=== PATIENT | male | born 1975 | race Caucasian/White ===

== ENCOUNTER 2017-07-13 01:41 | Emergency (ER) | payer BC ==
[2017-07-13] MEDS ORDERED: METOCLOPRAMIDE 5 MG/ML 2 ML VIAL IVP STA (02:05)
[2017-07-13] MEDS ORDERED: SODIUM CHLORIDE 0.9% 1,000 ML IV STA (02:05)
[2017-07-13] MEDS ORDERED: diphenhydrAMINE 50 MG/ML 1 ML VIAL IVP STA (02:05)
[2017-07-13 02:47] LABS: Basophils # (A) 0.1 k/uL (0-0.2); Basophils % (A) 1 %; CH 32.2; CHCM 35.2; Eosinophils # (A) 0.1 k/uL (0-0.7); Eosinophils % (A) 1 %; HCT 51.7 % (39.0-53.0); HDW 2.42; HGB 17.4 gm/dL (13.0-17.5); Luc % (Auto) 1; Lymphocytes # (A) 1.9 k/uL (1.0-4.8); Lymphocytes % (A) 21 %; MCH 30.9 pg (25.0-35.0); MCHC 33.6 g/dL (31.0-37.0); MCV 91.9 fL (80.0-100.0); Mean Platelet Volume 7.6; Monocytes # (A) 0.4 k/uL (0-1.0); Monocytes % (A) 5 %; Neutrophils # (A) 6.6 k/uL (1.3-7.7); Neutrophils % (A) 72 %; RBC 5.62 m/uL (4.30-5.90); RDW 14.2 % (11.5-15.5); WBC 9.2 k/uL (3.8-10.6); WBC (Perox) 9.06
[2017-07-13 02:57] LABS: ALT 42 U/L (21-72); AST 29 U/L (17-59); Alkaline Phosphatase 66 U/L (38-126); Anion Gap 13 mmol/L; Blood Urea Nitrogen 17 mg/dL (9-20); Calcium 9.9 mg/dL (8.4-10.2); Carbon Dioxide 19 mmol/L (22-30); Chloride 105 mmol/L (98-107); Glucose 91 mg/dL (74-99); Non-African American GFR(MDRD) >60 (>60 ml/min/1.73 sqM); Potassium 4.4 mmol/L (3.5-5.1); Sodium 137 mmol/L (137-145); Total Bilirubin 0.6 mg/dL (0.2-1.3); Total Protein 7.9 g/dL (6.3-8.2)
--- NOTE | 2017-07-13 03:01 | CT ---
EXAM: CT Head Without Intravenous Contrast CLINICAL HISTORY: Reason: Headache TECHNIQUE: Axial computed tomography images of the head/brain without intravenous contrast. CTDI is 60.3 mGy and DLP is 1000.4 mGy-cm. This CT exam was performed using one or more of the following dose reduction techniques: automated exposure control, adjustment of the mA and/or kV according to patient size, and/or use of iterative reconstruction technique. Coronal and sagittal reconstructions are performed COMPARISON: No relevant prior studies available. FINDINGS: Brain: Unremarkable. No hemorrhage. No significant white matter disease. No edema. Ventricles: Unremarkable. No ventriculomegaly. Bones/joints: Unremarkable. No acute fracture. Soft tissues: Unremarkable. Sinuses: Unremarkable as visualized. No acute sinusitis. Mastoid air cells: Unremarkable as visualized. No mastoid effusion. IMPRESSION: No acute intracranial findings
[2017-07-13 03:13] VITALS: BP 119/69; PULSE 89; RESP 18; TEMP 97.1
[2017-07-13] MEDS ORDERED: ACYCLOVIR 800 MG TAB PO STA (03:14)
--- NOTE | 2017-07-13 03:19 | ED ---
Skin/Abscess/FB HPI - General Chief complaint: Skin/Abscess/Foreign Body Stated complaint: facial pain,rash Time Seen by Provider: 07/13/17 01:46 Source: patient, RN notes reviewed, old records reviewed Mode of arrival: ambulatory Limitations: no limitations - History of Present Illness Initial comments: This is a 42 year old male with multiple complaints. Patient relates that he has had lesions over his scalp for the past few months, they are very pruritic and patient states that he scratched them today and there was some bleeding. Patient also relates that today he has some irritation, paresthesias, and pain over the right side of his face. Patient relates that he also noted a pimple over his right forehead. Patient relates that he also has a headache, and left work due to the headache. Patient reports he has had motrin with little relief of the headache. Patient states that he has no fever, chills, chest pain, shortness of breath. - Related Data Previous Rx's Medication Instructions Recorded HYDROcodone/APAP 5-325MG [[place] 1 each PO Q6HR PRN #20 tab 02/08/15 5-325] SILVER sulfADIAZINE Cream 1 applic TOPICAL BID #400 cream..g. 02/08/15 [Silvadene 1% Cream] valACYclovir HCL [Valacyclovir] 1,000 mg PO TID #21 tab 07/13/17 Allergies Allergy/AdvReac Type Severity Reaction Status Date / Time No Known Allergies Allergy Verified 07/13/17 01:52 Review of Systems ROS Statement: Those systems with pertinent positive or pertinent negative responses have been documented in the HPI. ROS Other: All systems not noted in ROS Statement are negative. Past Medical History Past Medical History: No Reported History History of Any Multi-Drug Resistant Organisms: None Reported Past Surgical History: Orthopedic Surgery Additional Past Surgical History / Comment(s): wrist surgery, knee surgery Past Psychological History: Anxiety Smoking Status: Current every day smoker Past Alcohol Use History: Occasional Past Drug Use History: None Reported General Exam - General Exam Comments Initial Comments: This is a 42 year old male, no distress. Limitations: no limitations General appearance: alert, in no apparent distress Head exam: Present: atraumatic, normocephalic, normal inspection, other ( patient has lesions over scalp that appear to be tinea capitus. ) Eye exam: Present: normal appearance, PERRL, EOMI. Absent: scleral icterus, conjunctival injection, periorbital swelling ENT exam: Present: normal exam, mucous membranes moist, other (one erythematous blister over right forehead. ) Neck exam: Present: normal inspection. Absent: tenderness, meningismus, lymphadenopathy Respiratory exam: Present: normal lung sounds bilaterally. Absent: respiratory distress, wheezes, rales, rhonchi, stridor Cardiovascular Exam: Present: regular rate, normal rhythm, normal heart sounds. Absent: systolic murmur, diastolic murmur, rubs, gallop, clicks GI/Abdominal exam: Present: soft, normal bowel sounds. Absent: distended, tenderness, guarding, rebound, rigid Extremities exam: Present: normal inspection, full ROM, normal capillary refill. Absent: tenderness, pedal edema, joint swelling, calf tenderness Back exam: Present: normal inspection Neurological exam: Present: alert, oriented X3, CN II-XII intact Expanded Patient oriented to: Present: person, place, time Speech: Present: fluid speech Cranial nerves: EOM's Intact: Normal Cerebellar function: Finger to Nose: Normal Upper motor neuron: Pronator Drift: Normal Sensory exam: Upper Extremity Light Touch: Normal, Lower Extremity Light Touch: Normal Motor strength exam: RUE: 5, LUE: 5, RLE: 5, LLE: 5 Eye Response: (4) open spontaneously Motor Response: (6) obeys commands Verbal Response: (5) oriented [place] Total: 15 Psychiatric exam: Present: normal affect, normal mood Course Vital Signs 07/13/17 07/13/17 01:47 03:11 Temperature 99.1 F 97.1 F L Pulse Rate 76 89 Respiratory 16 18 Rate Blood Pressure 134/87 119/69 O2 Sat by Pulse 98 98 Oximetry Medical Decision Making - Medical Decision Making This is a 42 year old male with lesion over scalp, facial pain nad blister, and headache. Labwork reviewed negtive for any abnormalities. CT brain is negative. Scalp lesions are consisitent with tinea capitus, patient also has blister lesion that can be similiar to begining shingles outbreak. This is consistent with prodromal facial parestesias and pain. Patient will be started on valtrex. Given a note for work, referral to PCP and dermatology. His headache is feeling better after fluids and medication. Patient needs to follow up with derm and discussed that if he has pain in his eye he needs to return for reevaluation. REturn parameters discussed. - Lab Data Result diagrams: 07/13/17 02:39 07/13/17 02:39 Lab Results 07/13/17 07/13/17 Range/Units 02:39 02:39 WBC 9.2 (3.8-10.6) k/uL RBC 5.62 (4.30-5.90) m/uL Hgb 17.4 (13.0-17.5) gm/dL Hct 51.7 (39.0-53.0) % MCV 91.9 (80.0-100.0) fL MCH 30.9 (25.0-35.0) pg MCHC 33.6 (31.0-37.0) g/dL RDW 14.2 (11.5-15.5) % Plt Count 292 (150-450) k/uL Neutrophils % 72 % Lymphocytes % 21 % Monocytes % 5 % Eosinophils % 1 % Basophils % 1 % Neutrophils # 6.6 (1.3-7.7) k/uL Lymphocytes # 1.9 (1.0-4.8) k/uL Monocytes # 0.4 (0-1.0) k/uL Eosinophils # 0.1 (0-0.7) k/uL Basophils # 0.1 (0-0.2) k/uL Sodium 137 (137-145) mmol/L Potassium 4.4 (3.5-5.1) mmol/L Chloride 105 (98-107) mmol/L Carbon Dioxide 19 L (22-30) mmol/L Anion Gap 13 mmol/L BUN 17 (9-20) mg/dL Creatinine 1.20 (0.66-1.25) mg/dL Est GFR (MDRD) Af Amer >60 (>60 ml/min/1.73 sqM) Est GFR (MDRD) Non-Af >60 (>60 ml/min/1.73 sqM) Glucose 91 (74-99) mg/dL Calcium 9.9 (8.4-10.2) mg/dL Total Bilirubin 0.6 (0.2-1.3) mg/dL AST 29 (17-59) U/L ALT 42 (21-72) U/L Alkaline Phosphatase 66 (38-126) U/L Total Protein 7.9 (6.3-8.2) g/dL Albumin 4.9 (3.5-5.0) g/dL - Radiology Data Radiology results: report reviewed CT brain negative for any acute process. Disposition Clinical Impression: Tinea capitis, Shingles rash, Headache Disposition: HOME SELF-CARE Condition: Good Instructions: Shingles (ED), Tinea Capitis (ED), Acute Headache (ED) Additional Instructions: Patient advised to return to the emergency department if any significant pain or some drainage with into the eye, take the antiviral medicines as prescribed. Patient should take Motrin Tylenol for further pain. The need to follow-up with a primary care provider. Also following up with the bank president in regards to the scalp irritation, return to the emergency department if any alarming signs or symptoms occur. Prescriptions: valACYclovir HCL [Valacyclovir] 1,000 mg PO TID #21 tab Referrals: None,Stated [Primary Care Provider] - 1-2 days Harleen Hernández MD [STAFF PHYSICIAN] - 1-2 days Time of Disposition: 03:15
[2017-07-13] MEDS ORDERED: valACYclovir 500 MG TAB PO STA (03:20)
[2017-07-13] MEDS: KETOROLAC 30 MG/ML 1 ML VIAL IVP STA ×2 (03:22→03:27)
[2017-07-13] MEDS: ORPHENADRINE 30 MG/ML 2 ML VIAL IVP STA ×2 (03:27→03:33)
== END 2017-07-13 03:40 | disposition home or self-care (01) ==
LOC: EC 01:41
DX: B35.0 Tinea barbae and tinea capitis (principal); B02.9 Zoster without complications; R51 Headache; F17.200 Nicotine dependence, unspecified, uncomplicated
CPT/HCPCS: 36415; 80053; 85025; 70450; 99284; 96374; 96375 ×2; 96361; J1200; J2360; J2765

== ENCOUNTER 2018-12-31 16:16 | Emergency (ER) | payer BC, OTHER ==
[2018-12-31 16:27] VITALS: BP 112/70; PULSE 77; TEMP 97.8
--- NOTE | 2018-12-31 17:47 | ED ---
General Adult HPI - General Chief complaint: Upper Respiratory Infection Stated complaint: SOB, rash Time Seen by Provider: 12/31/18 16:43 Source: patient, RN notes reviewed, old records reviewed Mode of arrival: ambulatory Limitations: no limitations - History of Present Illness Initial comments: 43-year-old male patient with no pertinent past medical history presents ED with 1 day history of painful rash in left axilla. Patient states that he noticed this today. Patient states that the rash is red, painful. Patient denies any other complaints. Patient denies chest pain, shortness breath, abdominal pain, nausea vomiting diarrhea, fevers chills. Systemic: Pt denies fatigue, myalgia, fever/chills. Pt denies weakness, night sweats, weight loss. Neuro: Pt denies headache, visual disturbances, syncope or pre-syncope. HEENT: Pt denies ocular discharge or irritation, otalgia, rhinorrhea, pharyngitis or notable lymphadenopathy. Cardiopulmonary: Pt denies chest pain, SOB, heart palpitations, dyspnea on exertion. Abdominal/GI: Pt denies abdominal pain, n/v/d. : Pt denies dysuria, burning w/ urination, frequency/urgency. Denies new onset urinary or bowel incontinence. MSK: Pt denies myalgia, loss of strength or function in extremities. Neuro: Pt denies new onset weakness, paresthesias. - Related Data Home Medications Medication Instructions Recorded Confirmed Dextroamphetamine/Amphetamine 20 mg PO BID 12/31/18 12/31/18 [Adderall] Sildenafil [Revatio] 20 mg PO DIRECTED 12/31/18 12/31/18 Previous Rx's Medication Instructions Recorded Clotrimazole/Betamethasone Dip 1 applic TOPICAL Q12HR 14 Days #1 12/31/18 [Lotrisone Cream] tube Allergies Allergy/AdvReac Type Severity Reaction Status Date / Time No Known Allergies Allergy Verified 12/31/18 16:42 Review of Systems ROS Statement: Those systems with pertinent positive or pertinent negative responses have been documented in the HPI. ROS Other: All systems not noted in ROS Statement are negative. Past Medical History Past Medical History: No Reported History History of Any Multi-Drug Resistant Organisms: None Reported Past Surgical History: Orthopedic Surgery Additional Past Surgical History / Comment(s): wrist surgery, knee surgery Past Psychological History: ADD/ADHD Smoking Status: Current every day smoker Past Alcohol Use History: None Reported Past Drug Use History: None Reported General Exam - General Exam Comments Initial Comments: Constitutional: NAD, AOX3, Pt has pleasant affect. HEENT: NC/AT, trachea midline, neck supple, no lymphadenopathy. Posterior pharynx non erythematous, without exudates. External ears appear normal, without discharge. Mucous membranes moist. Eyes PERRLA, EOM intact. There is no scleral icterus. No pallor noted. Cardiopulmonary: RRR, no murmurs, rubs or gallops, no JVD noted. Lungs CTAB in anterior and posterior rico. No peripheral edema. Abdominal exam: Abdomen soft and non-distended. Abdomen non-tender to palpation in all 4 quadrants. Bowel sounds active in LLQ. No hepatosplenomegaly. No ecchymosis Neuro: CN II-XII grossly intact. No nuchal rigidity. MSK: Erythematous rash noted in L axilla, tender to touch. No posterior calf tenderness bilaterally, homans sign negative bilaterally. Posterior tibialis and radial pulse +2 bilaterally. Sensation intact in upper and lower extremities. Full active ROM in upper and lower extremities, 5/5 stregnth. Limitations: no limitations Course Vital Signs 12/31/18 12/31/18 16:23 18:49 Temperature 97.8 F Pulse Rate 77 Respiratory 18 20 Rate Blood Pressure 112/70 O2 Sat by Pulse 100 Oximetry Medical Decision Making - Medical Decision Making 43-year-old male patient with no pertinent past medical history presents ED with 1 day history of painful rash in left axilla. Patient states that he noticed this today. Patient states that the rash is red, painful. Patient denies any other complaints. Patient denies chest pain, shortness breath, ab dominal pain, nausea vomiting diarrhea, fevers chills. Pt VSS, afebrile. Physical exam displayed: Erythematous rash noted in L axilla, tender to touch. This appears likely to be contact dermatitis. Patient prescribed Lotrisone cream. Patient will follow up with primary care provider in 1-2 days for continued evaluation. Case discussed with Dr. Prasad. Disposition Clinical Impression: Rash Disposition: HOME SELF-CARE Condition: Stable Instructions (If sedation given, give patient instructions): Acute Rash (ED) Additional Instructions: Patient to adhere to previously discussed treatment plan and will take medication(s) as directed. Patient to follow up with PCP in 1-2 days. Patient to return to ED if symptoms do not improve. Please follow-up with primary care provider in 1-2 days. Please used cream as directed. Please return to ER if condition worsens in any way. Prescriptions: Clotrimazole/Betamethasone Dip [Lotrisone Cream] 1 applic TOPICAL Q12HR 14 Days #1 tube Is patient prescribed a controlled substance at d/c from ED?: No Referrals: Sander Melchor MD [Primary Care Provider] - 1-2 days
[2018-12-31 18:49] VITALS: RESP 20
== END 2018-12-31 18:50 | disposition home or self-care (01) ==
LOC: EC 16:16
DX: R21 Rash and other nonspecific skin eruption (principal); F90.9 Attention-deficit hyperactivity disorder, unspecified type; F17.200 Nicotine dependence, unspecified, uncomplicated; Z79.899 Other long term (current) drug therapy
CPT/HCPCS: 99285

== ENCOUNTER 2019-07-29 22:53 | Emergency (ER) | payer BC ==
[2019-07-30] MEDS ORDERED: diphenhydrAMINE 50 MG CAP PO STA (00:46)
--- NOTE | 2019-07-30 00:46 | ED ---
General Adult HPI - General Chief complaint: Skin/Abscess/Foreign Body Stated complaint: Rash Time Seen by Provider: 07/30/19 00:24 Source: patient, RN notes reviewed, old records reviewed Mode of arrival: ambulatory Limitations: no limitations - History of Present Illness Initial comments: 44-year-old male patient presents to ED with chief complaint of rash in the right lower abdomen region. Patient was just started today. Patient states that he had she wasn't passed was eventually he has not had shingles again. Patient states that it is itchy. Denies any other complaints. Denies any chronic medical conditions. Systemic: Pt denies fatigue, fever/chills, rash. Pt denies weakness, night sweats, weight loss. Neuro: Pt denies headache, visual disturbances, syncope or pre-syncope. HEENT: Pt denies ocular discharge or irritation, otalgia, rhinorrhea, pharyngitis or notable lymphadenopathy. Cardiopulmonary: Pt denies chest pain, SOB, heart palpitations, dyspnea on exertion. Abdominal/GI: Pt denies abdominal pain, n/v/d. : Pt denies dysuria, burning w/ urination, frequency/urgency. Denies new onset urinary or bowel incontinence. MSK: Pt denies myalgia, loss of strength or function in extremities. Neuro: Pt denies new onset weakness, paresthesias. - Related Data Home Medications Medication Instructions Recorded Confirmed Dextroamphetamine/Amphetamine 20 mg PO BID 12/31/18 04/24/19 [Adderall] Sildenafil [Revatio] 20 mg PO DIRECTED PRN 12/31/18 04/24/19 Previous Rx's Medication Instructions Recorded Cyclobenzaprine [Flexeril] 10 mg PO TID PRN #15 tab 04/24/19 predniSONE 50 mg PO DAILY #5 tab 04/24/19 Allergies Allergy/AdvReac Type Severity Reaction Status Date / Time No Known Allergies Allergy Verified 07/29/19 23:13 Review of Systems ROS Statement: Those systems with pertinent positive or pertinent negative responses have been documented in the HPI. ROS Other: All systems not noted in ROS Statement are negative. Past Medical History Past Medical History: No Reported History History of Any Multi-Drug Resistant Organisms: None Reported Past Surgical History: Orthopedic Surgery Additional Past Surgical History / Comment(s): wrist surgery, knee surgery Past Psychological History: ADD/ADHD Smoking Status: Current every day smoker Past Alcohol Use History: None Reported Past Drug Use History: None Reported General Exam - General Exam Comments Initial Comments: Constitutional: NAD, AOX3, Pt has pleasant affect. HEENT: NC/AT, trachea midline, neck supple, no lymphadenopathy. Posterior pharynx non erythematous, without exudates. External ears appear normal, without discharge. Mucous membranes moist. Eyes PERRLA, EOM intact. There is no scleral icterus. No pallor noted. Cardiopulmonary: RRR, no murmurs, rubs or gallops, no JVD noted. Lungs CTAB in anterior and posterior rico. No peripheral edema. Abdominal exam: Abdomen soft and non-distended. Abdomen non-tender to palpation in all 4 quadrants. Bowel sounds active in LLQ. No hepatosplenomegaly. No ecchymosis Neuro: CN II-XII grossly intact. No nuchal rigidity. No raccon eyes, no arshad sign, no hemotympanum. No cervical spinal tenderness. MSK: No posterior calf tenderness bilaterally, homans sign negative bilaterally. Posterior tibialis and radial pulse +2 bilaterally. Sensation intact in upper and lower extremities. Full active ROM in upper and lower extremities, 5/5 stregnth. Derm: 2 separate 1 cm dry areas of erythema noted in right lower abdomen region. No drainage, no vesicles. No other areas of rash. Limitations: no limitations Course Vital Signs 07/29/19 23:11 Temperature 98.3 F Pulse Rate 79 Respiratory 16 Rate Blood Pressure 123/80 O2 Sat by Pulse 99 Oximetry Medical Decision Making - Medical Decision Making 44-year-old male patient presents to ED with chief complaint of rash in the right lower abdomen region. Patient was just started today. Patient states that he had she wasn't passed was eventually he has not had shingles again. Patient states that it is itchy. Denies any other complaints. Denies any chronic medical conditions. Vital signs stable, afebrile. Physical exam displayed: 2 separate 1 cm dry areas of erythema noted in right lower abdomen region. No drainage, no vesicles. No other areas of rash. Discussion with cristian clements that this does not look like shingles. Patient will use Benadryl, will monitor rational follow up with primary care provider tomorrow. Return to ER if condition worsens. Case discussed with Dr. Roskopp. Disposition Clinical Impression: Rash Disposition: HOME SELF-CARE Condition: Stable Instructions (If sedation given, give patient instructions): Acute Rash (ED) Additional Instructions: Patient to adhere to previously discussed treatment plan and will take medication(s) as directed. Patient to follow up with PCP in 1-2 days. Patient to return to ED if symptoms do not improve. Follow-up with primary care provider tomorrow. Continue to use Benadryl as needed. Return to ER if condition worsens. Is patient prescribed a controlled substance at d/c from ED?: No Referrals: Sander Melchor MD [Primary Care Provider] - 1-2 days
[2019-07-30 01:00] VITALS: BP 115/75; PULSE 77; RESP 18; TEMP 98.4
== END 2019-07-30 00:58 | disposition home or self-care (01) ==
LOC: EC 22:53
DX: R21 Rash and other nonspecific skin eruption (principal); R10.31 Right lower quadrant pain; F90.9 Attention-deficit hyperactivity disorder, unspecified type; F17.200 Nicotine dependence, unspecified, uncomplicated; Z79.899 Other long term (current) drug therapy
CPT/HCPCS: 99283

== ENCOUNTER → 2023-09-14 | Outpatient (CLI) | payer OTHER ==
--- NOTE | 2023-09-14 17:23 | XR ---
PROCEDURE: XR foot complete LT - 3V DATE AND TIME: 09/14/2023 5:06 PM CLINICAL INDICATION: PHH; S97.82XA TECHNIQUE: Department protocol COMPARISON: None FINDINGS: There is no fracture or malalignment. The soft tissues are unremarkable. IMPRESSION: NO ACUTE PROCESS.
== END | disposition home or self-care (01) ==
LOC: RADXRMAIN 16:38
PROVIDERS: ATTEND Emergency Medicine
DX: S97.82XA Crushing injury of left foot, initial encounter (principal)

== ENCOUNTER 2023-10-28 11:31 | Emergency (ER) | payer BC, OTHER ==
[2023-10-28] MEDS ORDERED: ACET/COD 300 MG/30 MG STARTER PACK 6 TAB BTL PO STA (13:03)
[2023-10-28] MEDS ORDERED: IBUPROFEN 800 MG TAB PO STA (13:03)
[2023-10-28] MEDS ORDERED: IBUPROFEN 600 MG STARTER PACK 4 TAB BTL PO STA (13:03)
[2023-10-28] MEDS ORDERED: AMOXIC-POT CLAV 875MG STARTER PACK 2 TAB BTL PO STA (13:03)
[2023-10-28] MEDS ORDERED: Acetaminophen-Codeine 300-30mg TAB PO STA (13:03)
--- NOTE | 2023-10-28 13:05 | ED ---
ENT HPI - General Chief complaint: Dental/Oral Stated complaint: dental infection Time Seen by Provider: 10/28/23 12:34 Source: patient, RN notes reviewed, old records reviewed Mode of arrival: ambulatory Limitations: no limitations - History of Present Illness Initial comments: This is a 48-year-old male to the emergency department for evaluation dental pain severe dental pain here in the emergency room. History of dental disease with dental caries. Or tooth condition. Patient has no significant swelling fevers able to eat and drink MD complaint: tooth pain -: days(s) Location: tooth # Severity: severe Severity scale (1-10): 8 Worsens with: none Context- Dental: history of dental caries Associated Symptoms: toothache - Related Data Home Medications Medication Instructions Recorded Confirmed Dextroamphetamine/Amphetamine 20 mg PO BID 12/31/18 04/24/19 [Adderall] Sildenafil [Revatio] 20 mg PO DIRECTED PRN 12/31/18 04/24/19 Previous Rx's Medication Instructions Recorded Cyclobenzaprine [Flexeril] 10 mg PO TID PRN #15 tab 04/24/19 predniSONE 50 mg PO DAILY #5 tab 04/24/19 Amoxic-Pot Clav 875-125Mg 1 tab PO Q12HR #20 tablet 10/28/23 [Augmentin 875-125] Allergies Allergy/AdvReac Type Severity Reaction Status Date / Time No Known Allergies Allergy Verified 10/28/23 11:51 Review of Systems ROS Statement: Those systems with pertinent positive or pertinent negative responses have been documented in the HPI. ROS Other: All systems not noted in ROS Statement are negative. Past Medical History Past Medical History: No Reported History History of Any Multi-Drug Resistant Organisms: None Reported Past Surgical History: Orthopedic Surgery Additional Past Surgical History / Comment(s): wrist surgery, knee surgery Past Psychological History: ADD/ADHD Smoking Status: Current every day smoker Past Alcohol Use History: None Reported Past Drug Use History: None Reported General Exam Limitations: no limitations General appearance: alert, in no apparent distress Head exam: Present: atraumatic, normocephalic, normal inspection Eye exam: Present: normal appearance, PERRL, EOMI. Absent: scleral icterus, conjunctival injection, periorbital swelling ENT exam: Present: normal exam, mucous membranes moist Neck exam: Present: normal inspection. Absent: tenderness, meningismus, lymphadenopathy Respiratory exam: Present: normal lung sounds bilaterally. Absent: respiratory distress, wheezes, rales, rhonchi, stridor Cardiovascular Exam: Present: regular rate, normal rhythm, normal heart sounds. Absent: systolic murmur, diastolic murmur, rubs, gallop, clicks GI/Abdominal exam: Present: soft, normal bowel sounds. Absent: distended, tenderness, guarding, rebound, rigid Extremities exam: Present: normal inspection, full ROM, normal capillary refill. Absent: tenderness, pedal edema, joint swelling, calf tenderness Back exam: Present: normal inspection Neurological exam: Present: alert, oriented X3, CN II-XII intact Psychiatric exam: Present: normal affect, normal mood Skin exam: Present: warm, dry, intact, normal color. Absent: rash Course Vital Signs 10/28/23 10/28/23 11:49 13:18 Temperature 98.0 F 98.8 F Pulse Rate 79 88 Respiratory 16 18 Rate Blood Pressure 122/79 132/78 O2 Sat by Pulse 96 99 Oximetry - Reevaluation(s) Reevaluation #1: Records reviewed Reevaluation #2: Symptoms are improved here in the ER Reevaluation #3: Patient informed results and questions answered Reevaluation #4: Was pt. sent in by a medical professional or institution (, PA, [employer]PH[employer] C[employer]TER, urgent care, hospital, or [facility]...) When possible be specific @ -no Did you speak to anyone other than the patient for history (EMS, parent, family, police, friend...)? What history was obtained from this source @ -no Did you review nursing and triage notes (agree or disagree)? Why? @ -agree Are old charts reviewed (outside hosp., previous admission, EMS record, old EKG, old radiological studies, urgent care reports/EKG's, [facility] records)? Report findings @ -yes Differential Diagnosis (chest pain, altered mental status, abdominal pain women, abdominal pain men, vaginal bleeding, weakness, fever, dyspnea, syncope, headache, dizziness, GI bleed, back pain, seizure, CVA, palpatations, mental health, musculoskeletal)? @ -prior EKG interpreted by me (3pts min.). @ -no X-rays interpreted by me (1pt min.). @ -no CT interpreted by me (1pt min.). @ -no U/S interpreted by me (1pt. min.). @ -no What testing was considered but not performed or refused? (CT, X-rays, U/S, labs)? Why? @ -none What meds were considered but not given or refused? Why? @ -none Did you discuss the management of the patient with other professionals (professionals i.e. , PA, [employer] C[employer]TER, lab, RT, psych nurse, social scientist, carpenter's assistant, teacher, medical corps officer, case management assistant)? Give summary @ -no Was smoking cessation discussed for >3mins.? @ -no Was critical care preformed (if so, how long)? @ -no Were there social determinants of health that impacted care today? How? (Homelessness, low income, unemployed, alcoholism, drug addiction, transportation, low edu. Level, literacy, decrease access to med. care, nursing home, rehab)? @ -none Was there de-escalation of care discussed even if they declined (Discuss DNR or withdrawal of care, Hospice)? DNR status @ -no What co-morbidities impacted this encounter? (DM, HTN, Smoking, COPD, CAD, Cancer, CVA, ARF, Chemo, Hep., AIDS, mental health diagnosis, sleep apnea, morbid obesity)? @ -none Was patient admitted / discharged? Hospital course, mention meds given and route, prescriptions, significant lab abnormalities, going to OR and other pertinent info. @ - 48 male to the emergency department for evaluation of dental pain with dental abscess dental caries history of. Patient has pain control currently placement antibiotics and can be discharged home Discharge Undiagnosed new problem with uncertain prognosis? @ -no Drug Therapy requiring intensive monitoring for toxicity (Heparin, Nitro, Insulin, Cardizem)? @ -no Were any procedures done? @ -no Diagnosis/symptom? @ -Ental caries dental abscess Acute, or Chronic, or Acute on Chronic? @ -Acute Uncomplicated (without systemic symptoms) or Complicated (systemic symptoms)? @ -Complicated Side effects of treatment? @ -no Exacerbation, Progression, or Severe Exacerbation? @ -exacerbation Poses a threat to life or bodily function? How? (Chest pain, [place], [place], pneumonia, PE, COPD, DKA, ARF, appy, cholecystitis, CVA, Diverticulitis, Homicidal, Suicidal, threat to staff... and all critical care pts) @ -no Medical Decision Making - Medical Decision Making 48 male to the emergency department for evaluation of dental pain with dental abscess dental caries history of. Patient has pain control currently placement antibiotics and can be discharged home Disposition Clinical Impression: Dental abscess, Dental caries Disposition: HOME SELF-CARE Condition: Good Instructions (If sedation given, give patient instructions): Dental Abscess (ED), Toothache (ED) Prescriptions: Amoxic-Pot Clav 875-125Mg [Augmentin 875-125] 1 tab PO Q12HR #20 tablet Is patient prescribed a controlled substance at d/c from ED?: No Referrals: Quan Blair DDS [STAFF PHYSICIAN] - 1-2 days Time of Disposition: 13:00
[2023-10-28 13:27] VITALS: BP 132/78; PULSE 88; RESP 18; TEMP 98.8
== END 2023-10-28 13:18 | disposition home or self-care (01) ==
LOC: EC 11:31
DX: K04.7 Periapical abscess without sinus (principal); K02.9 Dental caries, unspecified; F90.9 Attention-deficit hyperactivity disorder, unspecified type; F17.200 Nicotine dependence, unspecified, uncomplicated; Z79.899 Other long term (current) drug therapy
CPT/HCPCS: 99283

== ENCOUNTER 2024-01-03 13:39 | Emergency (ER) | payer OTHER ==
--- NOTE | 2024-01-03 14:46 | ED ---
Skin/Abscess/FB HPI - General Chief complaint: Skin/Abscess/Foreign Body Stated complaint: Rash, poss Shingles Time Seen by Provider: 01/03/24 14:35 Source: patient, RN notes reviewed Mode of arrival: ambulatory Limitations: no limitations - History of Present Illness Initial comments: This is a 48-year-old male who presents to the emergency department for a rash. States that over the last several days he has had a rash to the back of both legs, his back, and bilateral upper extremities. The rash is both itchy and painful. He has not taken anything for his rash. Patient is concerned that he may have shingles. MD complaint: rash - Related Data Home Medications Medication Instructions Recorded Confirmed Dextroamphetamine/Amphetamine 20 mg PO BID 12/31/18 04/24/19 [Adderall] Sildenafil [Revatio] 20 mg PO DIRECTED PRN 12/31/18 04/24/19 Previous Rx's Medication Instructions Recorded Cyclobenzaprine [Flexeril] 10 mg PO TID PRN #15 tab 04/24/19 predniSONE 50 mg PO DAILY #5 tab 04/24/19 Amoxic-Pot Clav 875-125Mg 1 tab PO Q12HR #20 tablet 10/28/23 [Augmentin 875-125] Famotidine 20 mg PO BID 5 Days #10 tablet 01/03/24 predniSONE 50 mg PO DAILY 5 Days #5 tablet 01/03/24 Allergies Allergy/AdvReac Type Severity Reaction Status Date / Time No Known Allergies Allergy Verified 01/03/24 14:02 Review of Systems ROS Statement: Those systems with pertinent positive or pertinent negative responses have been documented in the HPI. ROS Other: All systems not noted in ROS Statement are negative. Past Medical History Past Medical History: No Reported History History of Any Multi-Drug Resistant Organisms: None Reported Past Surgical History: Orthopedic Surgery Additional Past Surgical History / Comment(s): wrist surgery, knee surgery Past Psychological History: ADD/ADHD Smoking Status: Current every day smoker Past Alcohol Use History: None Reported Past Drug Use History: None Reported General Exam Limitations: no limitations General appearance: alert, in no apparent distress Head exam: Present: atraumatic, normocephalic, normal inspection Respiratory exam: Present: normal lung sounds bilaterally. Absent: respiratory distress, wheezes, rales, rhonchi, stridor Cardiovascular Exam: Present: regular rate, normal rhythm, normal heart sounds. Absent: systolic murmur, diastolic murmur, rubs, gallop, clicks Extremities exam: Present: other (Rough erythematous patches to the bilateral popliteal fossa. Scattered maculopapular lesions to the bilateral upper and lower extremities. No obvious lesions on the trunk.) Neurological exam: Present: alert, oriented X3, CN II-XII intact Psychiatric exam: Present: normal affect, normal mood Course Vital Signs 01/03/24 01/03/24 01/03/24 13:59 15:05 16:16 Temperature 98.0 F 98.1 F Pulse Rate 73 46 L 63 Respiratory 16 20 20 Rate Blood Pressure 139/78 182/91 116/49 O2 Sat by Pulse 98 99 99 Oximetry 01/03/24 01/03/24 01/03/24 16:56 17:12 18:25 Temperature 98.2 F 98.0 F 98.2 F Pulse Rate 71 56 L 65 Respiratory 22 18 22 Rate Blood Pressure 120/73 135/74 122/75 O2 Sat by Pulse 98 96 99 Oximetry Medical Decision Making - Medical Decision Making This is a 48 year old male who presents to the emergency department for a rash. Was pt. sent in by a medical professional or institution? @ -No Did you speak to anyone other than the patient for history? @ -No Did you review nursing and triage notes? @ -Yes, and I agree, it is accurate with regards to the patient's symptoms. Were old charts reviewed? @ -No Differential Diagnosis? @ -Differential Rash: Roseola, measles, Lyme disease, erythema multiforme, cellulitis, toxic shock syndrome, George Kentrell syndrome, Kawasaki disease, jamil mountain spotted fever, contact dermatitis, allergic dermatitis, measles, mumps, rubella, varicella, meningococcal disease, drug reaction, coxsackievirus, This is not m eant to be an all-inclusive list. EKG interpreted by me (3pts min.)? @ -EKG interpreted by me demonstrating the following: Sinus bradycardia. Ventricular rate 49 bpm, TX interval 118 ms, QRS duration 120 ms, QTc 418 ms. X-rays interpreted by me (1pt min.)? @ -Not obtained CT interpreted by me (1pt min.)? @ -CT scan of the brain obtained. My interpretation identifies no evidence of an acute intracranial hemorrhage or mass effect. U/S interpreted by me (1pt. min.)? @ -Not obtained What testing was considered but not performed? (CT, X-rays, U/S, labs)? Why? @ -None What meds were considered but not given? Why? @ -None Did you discuss the management of the patient with other professionals? @ -No Did you reconcile home meds? @ -No Was smoking cessation discussed for >3mins.? @ -No Was critical care preformed (if so, how long)? @ -No Were there social determinants of health that impacted care today? How? (Homelessness, low income, unemployed, alcoholism, drug addiction, transportation, low edu. Level, literacy, decrease access to med. care, penitentiary, rehab)? @ -No Was there de-escalation of care discussed even if they declined? (Discuss DNR or withdrawal of care, Hospice)? @ -No What co-morbidities impacted this encounter? (DM, HTN, Smoking, COPD, CAD, Cancer, CVA, Hep., AIDS, mental health diagnosis, sleep apnea, morbid obesity)? @ -None Was patient admitted / discharged? @ -Discharged. Physical examination consistent with a nonspecific dermatitis. Patient given an allergy cocktail consisting of Solu-Medrol, Benadryl, and famotidine. After the patient had been in the emergency department for over an hour, he had a syncopal episode where he appeared to stiffen up with possible tonic-clonic activity according to his . However, there was no postictal period and staff did not witness the syncopal event. Patient states that he does have syncopal episodes with needles, but denies a seizure history. Currently denies any headaches or other complaints. Due to this episode, we did proceed with blood work. Lab work demonstrates no acute findings. Lactic acid negative. CT scan of the brain demonstrates no acute process. After that episode, patient remained asymptomatic. He had been given a liter bolus of IV fluids and his vital signs improved. He did have improvement in symptoms with the allergy cocktail as well. Prescription for 5-day course of prednisone and famotidine provided with dosing instructions reviewed. Advised taking this with an [id number]-[id number] antihistamine as well. Patient sent home with triamcinolone cream to continue using 3-4 times daily for additional management. Patient discharged home in stable condition. Undiagnosed new problem with uncertain prognosis? @ -None Drug Therapy requiring intensive monitoring for toxicity (Heparin, Nitro, Insulin, Cardizem)? @ -None Were any procedures done? @ -None Diagnosis/symptom? @ -Rash, syncope Acute, or Chronic, or Acute on Chronic? @ -Acute Uncomplicated (without systemic symptoms) or Complicated (systemic symptoms)? @ -Uncomplicated Side effects of treatment? @ -None Exacerbation, Progression, or Severe Exacerbation] @ -Not applicable Poses a threat to life or bodily function? @ -No Return precautions reviewed in depth, the patient is instructed to return to the emergency department with any new, worsening, or concerning symptoms. Patient verbalized understanding. This case was discussed in detail with the attending ED physician, Dr. Jason. Presentation, findings, and treatment plan discussed in detail as well. - Lab Data Result diagrams: 01/03/24 15:17 01/03/24 15:17 Lab Results 01/03/24 01/03/24 01/03/24 Range/Units 15:08 15:17 15:17 WBC 9.3 (3.8-10.6) k/uL RBC 4.89 (4.30-5.90) m/uL Hgb 15.8 (13.0-17.5) gm/dL Hct 46.7 (39.0-53.0) % MCV 95.5 (80.0-100.0) fL MCH 32.2 (25.0-35.0) pg MCHC 33.8 (31.0-37.0) g/dL RDW 12.7 (11.5-15.5) % Plt Count (150-450) k/uL MPV 7.8 Neutrophils % 65 % Lymphocytes % 25 % Monocytes % 6 % Eosinophils % 1 % Basophils % 1 % Neutrophils # 6.1 (1.3-7.7) k/uL Lymphocytes # 2.3 (1.0-4.8) k/uL Monocytes # 0.6 (0-1.0) k/uL Eosinophils # 0.1 (0-0.7) k/uL Basophils # 0.1 (0-0.2) k/uL Manual Slide Review Performed RBC Morphology Normal Sodium 138 (137-145) mmol/L Potassium 4.8 (3.5-5.1) mmol/L Chloride 109 H (98-107) mmol/L Carbon Dioxide 21 L (22-30) mmol/L Anion Gap 8 mmol/L BUN 20 (9-20) mg/dL Creatinine 1.08 (0.66-1.25) mg/dL Est GFR (CKD-EPI)AfAm >90 (>60 ml/min/1.73 sqM) Est GFR (CKD-EPI)NonAf 80 (>60 ml/min/1.73 sqM) Glucose 98 (74-99) mg/dL POC Glucose (mg/dL) 99 (70-110) mg/dL POC Glu Manufacturing Engineering Intern ID Sowmya Alvarez Plasma Lactic Acid Bhupinder (0.7-2.0) mmol/L Calcium 10.2 (8.4-10.2) mg/dL Magnesium (1.6-2.3) mg/dL Total Bilirubin 1.3 (0.2-1.3) mg/dL AST 30 (17-59) U/L ALT 17 (4-49) U/L Alkaline Phosphatase 72 (38-126) U/L Troponin I (0.000-0.034) ng/mL Total Protein 7.5 (6.3-8.2) g/dL Albumin 4.7 (3.5-5.0) g/dL 01/03/24 01/03/24 01/03/24 Range/Units 15:17 17:20 17:20 WBC (3.8-10.6) k/uL RBC (4.30-5.90) m/uL Hgb (13.0-17.5) gm/dL Hct (39.0-53.0) % MCV (80.0-100.0) fL MCH (25.0-35.0) pg MCHC (31.0-37.0) g/dL RDW (11.5-15.5) % Plt Count (150-450) k/uL MPV Neutrophils % % Lymphocytes % % Monocytes % % Eosinophils % % Basophils % % Neutrophils # (1.3-7.7) k/uL Lymphocytes # (1.0-4.8) k/uL Monocytes # (0-1.0) k/uL Eosinophils # (0-0.7) k/uL Basophils # (0-0.2) k/uL Manual Slide Review RBC Morphology Sodium (137-145) mmol/L Potassium (3.5-5.1) mmol/L Chloride (98-107) mmol/L Carbon Dioxide (22-30) mmol/L Anion Gap mmol/L BUN (9-20) mg/dL Creatinine (0.66-1.25) mg/dL Est GFR (CKD-EPI)AfAm (>60 ml/min/1.73 sqM) Est GFR (CKD-EPI)NonAf (>60 ml/min/1.73 sqM) Glucose (74-99) mg/dL POC Glucose (mg/dL) (70-110) mg/dL POC Glu Manufacturing Engineering Intern ID Plasma Lactic Acid Bhupinder 1.2 (0.7-2.0) mmol/L Calcium (8.4-10.2) mg/dL Magnesium 2.1 (1.6-2.3) mg/dL Total Bilirubin (0.2-1.3) mg/dL AST (17-59) U/L ALT (4-49) U/L Alkaline Phosphatase (38-126) U/L Troponin I <0.012 (0.000-0.034) ng/mL Total Protein (6.3-8.2) g/dL Albumin (3.5-5.0) g/dL - Radiology Data Radiology results: report reviewed, image reviewed Disposition Clinical Impression: Dermatitis, Syncope Disposition: HOME SELF-CARE Instructions (If sedation given, give patient instructions): Acute Rash (ED) Additional Instructions: Return to the emergency department with any new, worsening, or concerning symptoms. Take the prednisone daily for 5 days and the famotidine twice daily for 5 days. Start these medications tomorrow, as you already received them in the emergency department today. You can also take Benadryl or another [id number] antihistamine for further management. You can continue to use the cream provided 3-4 times daily. Follow up with your primary care provider in 1-2 days. Prescriptions: Famotidine 20 mg PO BID 5 Days #10 tablet predniSONE 50 mg PO DAILY 5 Days #5 tablet Is patient prescribed a controlled substance at d/c from ED?: No Referrals: None,Stated [Primary Care Provider] - 1-2 days Time of Disposition: 18:04
[2024-01-03] MEDS: methylPREDNISolone SOD SUCCI 125 MG/2 ML VIAL IM ONE (14:50)
[2024-01-03] MEDS: diphenhydrAMINE 50 MG/ML 1 ML VIAL IM STA (14:53)
[2024-01-03] MEDS: FAMOTIDINE 20 MG TAB PO STA (14:54)
[2024-01-03 15:09] LABS: Glucose,Whole Blood 99 mg/dL (70-110)
[2024-01-03] MEDS: SODIUM CHLORIDE 0.9% 1,000 ML IV STA (15:16)
[2024-01-03] MEDS: TRIAMCINOLONE ACET 0.5% CREAM 15 GM TUBE TOPICAL ONE (15:16)
[2024-01-03 15:37] LABS: Basophils # (A) 0.1 k/uL (0-0.2); Basophils % (A) 1 %; Eosinophils # (A) 0.1 k/uL (0-0.7); Eosinophils % (A) 1 %; HCT 46.7 % (39.0-53.0); HGB 15.8 gm/dL (13.0-17.5); Lymphocytes # (A) 2.3 k/uL (1.0-4.8); Lymphocytes % (A) 25 %; MCH 32.2 pg (25.0-35.0); MCHC 33.8 g/dL (31.0-37.0); MCV 95.5 fL (80.0-100.0); Mean Platelet Volume 7.8; Monocytes # (A) 0.6 k/uL (0-1.0); Monocytes % (A) 6 %; Neutrophils # (A) 6.1 k/uL (1.3-7.7); Neutrophils % (A) 65 %; RBC 4.89 m/uL (4.30-5.90); RDW 12.7 % (11.5-15.5); WBC 9.3 k/uL (3.8-10.6)
[2024-01-03 15:50] LABS: ALT 17 U/L (4-49); AST 30 U/L (17-59); African American GFR (CKD) >90 (>60 ml/min/1.73 sqM); Albumin 4.7 g/dL (3.5-5.0); Alkaline Phosphatase 72 U/L (38-126); Anion Gap 8 mmol/L; Blood Urea Nitrogen 20 mg/dL (9-20); Calcium 10.2 mg/dL (8.4-10.2); Carbon Dioxide 21 mmol/L (22-30); Chloride 109 mmol/L (98-107); Glucose 98 mg/dL (74-99); Non-African American GFR(CKD) 80 (>60 ml/min/1.73 sqM); Potassium 4.8 mmol/L (3.5-5.1); Sodium 138 mmol/L (137-145); Total Bilirubin 1.3 mg/dL (0.2-1.3); Total Protein 7.5 g/dL (6.3-8.2)
--- NOTE | 2024-01-03 16:00 | CT ---
EXAMINATION TYPE: CT brain wo con DATE OF EXAM: 01/03/2024 COMPARISON: 07/13/2017. HISTORY: Altered mental status with seizure and syncope. CT DLP: 1109.4 mGycm. Automated Exposure Control for Dose Reduction was Utilized. TECHNIQUE: CT scan of the head is performed without contrast. FINDINGS: There is no acute intracranial hemorrhage, mass effect, or midline shift identified. The ventricles and sulci are within normal limits in size. The globes are intact and the visualized sin uses are clear. IMPRESSION: No acute intracranial hemorrhage, mass effect, or midline shift is seen.
[2024-01-03 16:44] LABS: RBC Morphology Normal
[2024-01-03 18:32] VITALS: BP 122/75; PULSE 65; RESP 22; TEMP 98.2
== END 2024-01-03 18:25 | disposition home or self-care (01) ==
LOC: EC 13:39
DX: L30.9 Dermatitis, unspecified (principal); R55 Syncope and collapse; F90.9 Attention-deficit hyperactivity disorder, unspecified type; F17.200 Nicotine dependence, unspecified, uncomplicated; Z79.899 Other long term (current) drug therapy
CPT/HCPCS: 36415; 93005; 80053; 83605; 83735; 84484; 85025; 70450; 99284; 96372 ×2; 96360; 96361 ×2; J1200; J2930

== ENCOUNTER 2024-11-02 06:04 | Emergency (ER) | payer OTHER ==
[2024-11-02 06:11] VITALS: RESP 18
--- NOTE | 2024-11-02 06:27 | ED ---
Recheck HPI - General Chief Complaint: Recheck/Abnormal Lab/Rx Stated Complaint: abnormal labs Time Seen by Provider: 11/02/24 06:12 Source: patient, police, RN notes reviewed Mode of arrival: ambulatory Limitations: no limitations - History of Present Illness Initial Comments: 49-year-old male presents emergency department with police for possible foreign body ingestion. Patient was booked in his routine booking he had an x-ray showing questionable upper abdominal anomaly. Patient denies any ingestion. He has mid to marijuana use, other illicit drug use and alcohol use patient denies any chest pain shortness of breath fever chills no dysuria no change in bowel habits no other complaints. - Related Data Home Medications Medication Instructions Recorded Confirmed Dextroamphetamine/Amphetamine 20 mg PO BID 12/31/18 04/24/19 [Adderall] Sildenafil [Revatio] 20 mg PO DIRECTED PRN 12/31/18 04/24/19 Previous Rx's Medication Instructions Recorded Cyclobenzaprine [Flexeril] 10 mg PO TID PRN #15 tab 04/24/19 predniSONE 50 mg PO DAILY #5 tab 04/24/19 Amoxic-Pot Clav 875-125Mg 1 tab PO Q12HR #20 tablet 10/28/23 [Augmentin 875-125] Famotidine 20 mg PO BID 5 Days #10 tablet 01/03/24 predniSONE 50 mg PO DAILY 5 Days #5 tablet 01/03/24 Allergies Allergy/AdvReac Type Severity Reaction Status Date / Time No Known Allergies Allergy Verified 11/02/24 06:08 Review of Systems ROS Statement: Those systems with pertinent positive or pertinent negative responses have been documented in the HPI. ROS Other: All systems not noted in ROS Statement are negative. Past Medical History Past Medical History: No Reported History Additional Past Medical History / Comment(s): TB 2013 History of Any Multi-Drug Resistant Organisms: None Reported Past Surgical History: Orthopedic Surgery Additional Past Surgical History / Comment(s): wrist surgery, knee surgery Past Psychological History: ADD/ADHD Smoking Status: Current every day smoker Past Alcohol Use History: Occasional Past Drug Use History: None Reported General Exam Limitations: no limitations General appearance: alert, in no apparent distress Head exam: Present: atraumatic, normocephalic, normal inspection Eye exam: Present: normal appearance, PERRL, EOMI. Absent: scleral icterus, conjunctival injection, periorbital swelling ENT exam: Present: normal exam, normal oropharynx, mucous membranes moist Neck exam: Present: normal inspection, full ROM. Absent: tenderness, meningismus, lymphadenopathy Respiratory exam: Present: normal lung sounds bilaterally. Absent: respiratory distress, wheezes, rales, rhonchi, stridor Cardiovascular Exam: Present: regular rate, normal rhythm, normal heart sounds. Absent: systolic murmur, diastolic murmur, rubs, gallop, clicks GI/Abdominal exam: Present: soft, normal bowel sounds. Absent: distended, tenderness, guarding, rebound, rigid Course Vital Signs 11/02/24 11/02/24 06:08 07:24 Temperature 97.9 F 98.1 F Pulse Rate 69 64 Respiratory 18 18 Rate Blood Pressure 138/84 127/77 O2 Sat by Pulse 98 99 Oximetry Medical Decision Making - Medical Decision Making Was pt. sent in by a medical professional or institution (, PA, BOARD MIXER TENDER, urgent care, hospital, or custodial...) When possible be specific @ -Longterm Did you speak to anyone other than the patient for history (EMS, parent, family, police, friend...)? What history was obtained from this source @ -No Did you review nursing and triage notes (agree or disagree)? Why? @ -I reviewed and agree with nursing and triage notes Were old charts reviewed (outside hosp., previous admission, EMS record, old EKG, old radiological studies, urgent care reports/EKG's, custodial records)? Report findings @ -No old charts were reviewed Differential Diagnosis (chest pain, altered mental status, abdominal pain women, abdominal pain men, vaginal bleeding, weakness, fever, dyspnea, syncope, headache, dizziness, GI bleed, back pain, seizure, CVA, palpatations, mental health, musculoskeletal)? @ -Foreign body ingestion, abdominal pain EKG interpreted by me (3pts min.). @ -None X-rays interpreted by me (1pt min.). @ -Chest x-ray shows no acute cardiopulmonary process 1 view X-ray 2 view no acute foreign body ingestion CT interpreted by me (1pt min.). @ -None done U/S interpreted by me (1pt. min.). @ -None done What testing was considered but not performed or refused? (CT, X-rays, U/S, labs)? Why? @ -None What meds were considered but not given or refused? Why? @ -None Did you discuss the management of the patient with other professionals (professionals i.e. , PA, BOARD MIXER TENDER, lab, RT, psych nurse, elementary school social worker, bean dumper, teacher, production officer, case manager specialist)? Give summary @ -No Was smoking cessation discussed for >3mins.? @ -No Was critical care preformed (if so, how long)? @ -No Were there social determinants of health that impacted care today? How? (Homelessness, low income, unemployed, alcoholism, drug addiction, transportation, low edu. Level, literacy, decrease access to med. care, [facility], rehab)? @ -No Was there de-escalation of care discussed even if they declined (Discuss DNR or withdrawal of care, Hospice)? DNR status @ -No What co-morbidities impacted this encounter? (DM, HTN, Smoking, COPD, CAD, Cancer, CVA, ARF, Chemo, Hep., AIDS, mental health diagnosis, sleep apnea, morbid obesity)? @ -None Was patient admitted / discharged? Hospital course, mention meds given and rou te, prescriptions, significant lab abnormalities, going to OR and other pertinent info. @ -[Discharge patient has no evidence of foreign body ingestion patient is vitally stable has no abdominal pain be discharged in stable condition. Did discuss return parameters Undiagnosed new problem with uncertain prognosis? @ -No Drug Therapy requiring intensive monitoring for toxicity (Heparin, Nitro, Insu wesley, Cardizem)? @ -No Were any procedures done? @ -No Diagnosis/symptom? @ -Evaluation for foreign body ingestion Acute, or Chronic, or Acute on Chronic? @ -Acute Uncomplicated (without systemic symptoms) or Complicated (systemic symptoms)? @ -Uncomplicated Side effects of treatment? @ -No Exacerbation, Progression, or Severe Exacerbation? @ -No Poses a threat to life or bodily function? How? (Chest pain, [place], [place], pneumonia, PE, COPD, DKA, ARF, appy, cholecystitis, CVA, Diverticulitis, Homicidal, Suicidal, threat to staff... and all critical care pts) @ -No Disposition Clinical Impression: No foreign body found on evaluation Disposition: HOME SELF-CARE Condition: Stable Additional Instructions: Please return to the Emergency Department if symptoms worsen or any other concerns. Is patient prescribed a controlled substance at d/c from ED?: No Referrals: None,Stated [Primary Care Provider] - 1-2 days Time of Disposition: 07:19
--- NOTE | 2024-11-02 06:53 | XR ---
EXAMINATION TYPE: XR KUB DATE OF EXAM: 11/02/2024 6:45 AM CLINICAL HISTORY: Possible foreign body, congestion TECHNIQUE: Two Upright KUB images of the abdomen are obtained. COMPARISON: CT abdomen and pelvis June 07, 2024. FINDINGS: Scattered gas is seen in non-distended small bowel loops. Gas and fecal material is seen in non-distended colon. No obvious suspicious radiodense foreign body seen. There is no visceromegaly, pneumoperitoneum, or abnormal calcification appreciated. The lung bases are clear and the osseous str uctures are intact. IMPRESSION: Overall nonobstructive bowel gas pattern. [facility], , 11/02/2024 6:51 AM
--- NOTE | 2024-11-02 07:03 | XR ---
EXAMINATION TYPE: XR chest 1V portable DATE OF EXAM: 11/02/2024 COMPARISON: Chest x-ray from February 08, 2015 CLINICAL INDICATION: Male, 49 years old with history of pain; TECHNIQUE: Single frontal view of the chest is obtained. FINDINGS: There is no suspicious new focal air space opacity, pleural effusion, or pneumothorax seen . The cardiac silhouette size remains within normal limits. The osseous structures are intact. IMPRESSION: No acute process. [facility], , 11/02/2024 7:01 AM
[2024-11-02 07:26] VITALS: BP 127/77; PULSE 64; TEMP 98.1
== END 2024-11-02 07:24 | disposition home or self-care (01) ==
LOC: EC 06:04
DX: Z03.821 Encounter for observation for suspected ingested foreign body ruled out (principal); F17.200 Nicotine dependence, unspecified, uncomplicated
CPT/HCPCS: 71045; 74018; 99283; 99284